=== PATIENT | female | born 1960 | race Caucasian/White ===

== ENCOUNTER 2017-03-28 22:25 | Emergency (ER) | payer OTHER ==
[2017-03-28 22:32] VITALS: TEMP 98.1
--- NOTE | 2017-03-28 22:42 | CPEKG ---
Heart Rate: 76 RR Interval: 789 P-R Interval: 168 QRSD Interval: 74 QT Interval: 404 QTC Interval: 455 P [place]: 69 QRS [place]: 50 T Wave [place]: 40 EKG Severity - ABNORMAL ECG - EKG Impression: SINUS RHYTHM EKG Impression: PROBABLE LEFT ATRIAL ABNORMALITY EKG Impression: PROBABLE LEFT VENTRICULAR HYPERTROPHY Electronically Signed By: Jimenez Willis 29-Mar-2017 07:08:52
[2017-03-28] MEDS ORDERED: NS 500 ML IV ONE (22:47)
[2017-03-28] MEDS ORDERED: ASPIRIN 81 MG CHEWABLE TAB PO ONE (22:47)
[2017-03-28] MEDS ORDERED: LORazepam 2 MG/ML INJ IVP ONE (22:47)
[2017-03-28 22:52] LABS: % IMMATURE GRANULYOCYTES 0.3 % (0.0-1.1); ABSOLUTE IMMATURE GRANULOCYTES 0.02 10^3/uL (0.00-0.10); ADD DIFF? NO; ADD MORPH? NO; ADD SCAN? NO; ATYPICAL LYMPHOCYTE FLAG 10 (0-99); FRAGMENT RBC FLAG 0 (0-99); HEMATOCRIT 41.8 % (38.0-47.0); HEMOGLOBIN 14.3 g/dL (12.6-16.3); LEFT SHIFT FLG 0 (0-99); LIPEMIA HEMOLYSIS FLAG 90 (0-99); MEAN CELL HEMOGLOBIN 32.1 pg (27.9-34.1); MEAN CELL HEMOGLOBIN CONCENTR. 34.2 g/dL (32.4-36.7); MEAN CELL VOLUME 93.7 fL (81.5-99.8); MEAN PLATELET VOLUME 10.3 fL (8.7-11.7); PLATELET CLUMPS FLAG 0 (0-99); PLATELET COUNT 278 10^3/uL (150-400); RED BLOOD CELL COUNT 4.46 10^6/uL (4.18-5.33); RED CELL DISTRIBUTION WIDTH 12.1 % (11.5-15.2)
[2017-03-28 22:59] LABS: ANION GAP 14 mEq/L (8-16); CALCIUM 9.7 mg/dL (8.5-10.4); CARBON DIOXIDE 25 mEq/l (22-31); CHLORIDE 95 mEq/L (97-110); CREATININE 0.8 mg/dL (0.6-1.0); GLOMERULAR FILTRATION RATE > 60; GLUCOSE 120 mg/dL (70-100); MAGNESIUM 1.6 mg/dL (1.6-2.3); POTASSIUM 3.7 mEq/L (3.5-5.2); SODIUM 134 mEq/L (134-144)
[2017-03-28 23:01] LABS: INR 1.01 (0.83-1.16); PROTIME(PATIENT) 13.2 SEC (12.0-15.0)
[2017-03-28 23:02] LABS: APTT 24.7 SEC (23.0-38.0)
[2017-03-28 23:10] LABS: TROPONIN I < 0.012 ng/mL (0.000-0.034)
--- NOTE | 2017-03-28 23:12 | EDPHY ---
H & P Smoking Status: Never smoked Time Seen by Provider: 03/28/17 23:08 HPI/ROS: HPI: Ms. Monsalve is a 56 yrs, female who presents with Chief Complaint: Location: Left side of neck, left anterior chest, midsternal Quality: Pressure Duration: 2 hours Signs and Symptoms: No nausea and vomiting, positive dyspnea at rest, positive cardiac awareness, positive anxiety, no orthopnea, no paroxysmal nocturnal dyspnea, no lower leg swelling, no palpitation Timing: Sudden, constant Severity: Moderate Context: History of Gitelman Syndrome. 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 No prior cardiac history. Patient had a nuclear stress test outpatient for her and normal approximately 7 years ago due to previously mentioned diagnosis. Patient tried nothing for the symptoms. Patient does admit after probing that she has been lifting weights over the last few days. Right hand dominant. Modifying Factors: No [id number] medications tract Comment: ROS: Eyes: No blurred vision Respiratory: No shortness of breath, no cough Cardiovascular: No chest pain Gastrointestinal: No nausea, no vomiting no diarrhea Genitourinary: No dysuria Extremities: No myalgias Neurologic: No weakness, no numbness Skin: No rashes Hematologic: No bruising, no bleeding MEDICAL/SURGICAL HISTORY: Gitelman syndrome, hypertension, hypokalemia, hypomagnesemia (Kimberly Foreman) Social History: . Has children. (Kimberly Foreman) Physical Exam: CONSTITUTIONAL: Anxious pleasant adult white female, accompanied by her , awake and alert, no obvious distress HEENT: Atraumatic and normocephalic, PERRL, EOMI. Tympanic membranes clear. . Oropharynx clear, no exudate and moist pink mucosa. Airway patent. NECK: Reproducible left trapezius muscle tenderness, supple, full range of motion-flexion, extension, rotation. No lymphadenopathy. No meningismus. Cardiovascular: Normal S1/S2, regular rate, regular rhythm, without murmur rub or gallop. PULMONARY/CHEST: Symmetrical and nontender. Clear to auscultation bilaterally Good air movement. No accessory muscle usage. ABDOMEN: Soft, nondistended, nontender, no rebound, no guarding, no peritoneal signs, no masses or organomegaly. No CVAT. EXTREMITIES: 2/2 pulses, no deformities, no clubbing, no cyanosis or edema. Left shoulder AC joint tenderness; full range of motion; internal rotation, external rotation, ABduction, no pain with arc test, deltoid strength 5/5. NEUROLOGICAL: no focal neuro deficits. GCS 15. SKIN: Warm and dry, no erythema. no rash. Good capillary refill. (Kimberly Foreman) Constitutional: Initial Vital Signs Temperature (C) 36.7 C 03/28/17 22:30 Heart Rate 81 03/28/17 22:30 Respiratory Rate 20 03/28/17 22:30 Blood Pressure 164/108 H 03/28/17 22:30 O2 Sat (%) 97 03/28/17 22:30 O2 Delivery Mode Room Air Allergies/Adverse Reactions: amoxicillin Allergy (Verified 03/29/17 02:39) Penicillins Allergy (Verified 03/29/17 02:39) Home Medications: Medication Instructions Recorded Htn Med 03/28/17 Medical Decision Making - Diagnostics EKG Interpretation: 12 lead EKG: Indication: chest pain Rhythm: Normal sinus, rate of 76 beats per minute [place]: Normal access MT: Normal QRS: Normal ST segments: Nonspecific changes INTERPRETATION: No EKG for comparison. The 12 lead EKG was interpreted by myself and with Dr. Willis. (Kimberly Foreman) Imaging Results: Imaging Impressions Chest X-Ray 03/28/17 22:48 Impression: No acute thoracic abnormality. Chest/Thorax CTA 03/28/17 23:23 Impression: No pulmonary embolism to the segmental level. Dr. Aguirre discussed these findings by telephone with Kimberly Foreman at 2016 0:06. ED Course/Re-evaluation: Atypical chest pain Chest x-ray, labs, oral medication, EKG ordered Given full-strength aspirin and IV Ativan SUJEY risk index low mortality in ACS CTA Chest negative for PE first troponin unremarkable and no ischemic EKG change End of shift Patient signed out to Dr. Willis at 1:09 a.m. pending 2nd troponin and final disposition. I authorize my typed signature that I authenticated this report. (Kimberly Foreman) 0100 care assumed by me from PA read pending repeat troponin an ECG. 0215 repeat ECG is normal. Awaiting troponin. Patient is pain free. Repeat troponin is normal. Patient was pain free. Will discharge with follow- up with primary care physician. Return for worsening. (Jimenez Willis) - Data Points Laboratory Results: Laboratory Results 03/28/17 22:42 03/28/17 22:42 03/29/17 03/28/17 03/28/17 01:55 22:42 22:42 WBC RBC Hgb Hct MCV MCH MCHC RDW Plt Count MPV Neut % (Auto) Lymph % (Auto) [place] % (Auto) Eos % (Auto) Baso % (Auto) Nucleat RBC Rel Count Absolute Neuts (auto) Absolute Lymphs (auto) Absolute Monos (auto) Absolute Eos (auto) Absolute Basos (auto) Absolute Nucleated RBC Immature Gran % Immature Gran # PT 13.2 SEC SEC (12.0-15.0) INR 1.01 (0.83-1.16) APTT 24.7 SEC SEC (23.0-38.0) D-Dimer 1.58 ug/mLFEU H ug/mLFEU (0.00-0.50) Sodium 134 mEq/L mEq/L (134-144) Potassium 3.7 mEq/L mEq/L (3.5-5.2) Chloride 95 mEq/L L mEq/L (97-110) Carbon Dioxide 25 mEq/l mEq/l (22-31) Anion Gap 14 mEq/L mEq/L (8-16) BUN 20 mg/dL mg/dL (7-23) Creatinine 0.8 mg/dL mg/dL (0.6-1.0) Estimated GFR > 60 Glucose 120 mg/dL H mg/dL (70-100) Calcium 9.7 mg/dL mg/dL (8.5-10.4) Magnesium 1.6 mg/dL mg/dL (1.6-2.3) Troponin I < 0.012 ng/mL ng/mL < 0.012 ng/mL ng/mL (0.000-0.034) (0.000-0.034) NT-Pro-B Natriuret Pep 51 pg/mL pg/mL (0-125) 03/28/17 22:42 WBC 6.90 10^3/uL 10^3/uL (3.80-9.50) RBC 4.46 10^6/uL 10^6/uL (4.18-5.33) Hgb 14.3 g/dL g/dL (12.6-16.3) Hct 41.8 % % (38.0-47.0) MCV 93.7 fL fL (81.5-99.8) MCH 32.1 pg pg (27.9-34.1) MCHC 34.2 g/dL g/dL (32.4-36.7) RDW 12.1 % % (11.5-15.2) Plt Count 278 10^3/uL 10^3/uL (150-400) MPV 10.3 fL fL (8.7-11.7) Neut % (Auto) 39.1 % L % (39.3-74.2) Lymph % (Auto) 46.7 % H % (15.0-45.0) [place] % (Auto) 11.0 % % (4.5-13.0) Eos % (Auto) 2.0 % % (0.6-7.6) Baso % (Auto) 0.9 % % (0.3-1.7) Nucleat RBC Rel Count 0.0 % % (0.0-0.2) Absolute Neuts (auto) 2.70 10^3/uL 10^3/uL (1.70-6.50) Absolute Lymphs (auto) 3.22 10^3/uL H 10^3/uL (1.00-3.00) Absolute Monos (auto) 0.76 10^3/uL 10^3/uL (0.30-0.80) Absolute Eos (auto) 0.14 10^3/uL 10^3/uL (0.03-0.40) Absolute Basos (auto) 0.06 10^3/uL 10^3/uL (0.02-0.10) Absolute Nucleated RBC 0.00 10^3/uL 10^3/uL (0-0.01) Immature Gran % 0.3 % % (0.0-1.1) Immature Gran # 0.02 10^3/uL 10^3/uL (0.00-0.10) PT INR APTT D-Dimer Sodium Potassium Chloride Carbon Dioxide Anion Gap BUN Creatinine Estimated GFR Glucose Calcium Magnesium Troponin I NT-Pro-B Natriuret Pep Medications Given: Discontinued Medications Aspirin (Aspirin) 324 mg PO EDNOW ONE Stop: 03/28/17 22:48 Last Admin: 03/28/17 23:00 Dose: 324 mg Sodium Chloride (Ns) 500 mls @ 1,000 mls/hr IV EDNOW ONE PRN Reason: Protocol Stop: 03/28/17 23:16 Last Admin: 03/28/17 23:01 Dose: 500 mls Lorazepam (Ativan Injection) 1 mg IVP EDNOW ONE Stop: 03/28/17 22:48 Last Admin: 03/28/17 23:01 Dose: 1 mg Departure - Departure Disposition: Home, Routine, Self-Care Clinical Impression: Atypical chest pain Condition: Good Instructions: Chest Pain (ED) Additional Instructions: Follow up with primary care physician 1-2 days to arrange for an outpatient stress test. Return emergency depart for increasing chest pain, shortness of breath, fevers, chills, or any other concerns. Referrals: Shanel Christopher MD [Primary Care Provider] - As per Instructions
[2017-03-28] MEDS ORDERED: IOPAMIDOL (ISOVUE 370) 100 ML BTL IV ONE (23:25)
--- NOTE | 2017-03-29 02:24 | CPEKG ---
Heart Rate: 60 RR Interval: 1000 P-R Interval: 160 QRSD Interval: 74 QT Interval: 440 QTC Interval: 440 P [place]: 56 QRS [place]: 29 T Wave [place]: 40 EKG Severity - NORMAL ECG - EKG Impression: SINUS RHYTHM Electronically Signed By: Jimenez Willis 29-Mar-2017 07:08:52
[2017-03-29 02:28] VITALS: RESP 16
[2017-03-29 03:07] VITALS: BP 114/75; PULSE 67; O2SAT 97
== END 2017-03-29 03:06 | disposition home or self-care (01) ==
LOC: EEVIPCON 22:25
DX: R07.89 Other chest pain (principal); I10 Essential (primary) hypertension
CPT/HCPCS: 96374; J2060; Q9967

== ENCOUNTER → 2017-11-26 | Outpatient (CLI) | payer OTHER | LOC: FIMAGING 14:26 | PROVIDERS: ATTEND Family Medicine | DX: Z12.31 Encounter for screening mammogram for malignant neoplasm of breast (principal) ==